=== PATIENT | female | born 1990 | race Caucasian/White ===

== ENCOUNTER → 2016-06-20 | Day surgery (SDC) | payer OTHER ==
[2016-06-15 12:35] VITALS: Ht 162.6 cm; Wt 136.4 kg
[~2016-06-20] VITALS: Ht 162.6 cm; Wt 136.4 kg
[~2016-06-20] MED LIST: ALBINS/ INH; ALBUAER2 INH; CLIN150C PO; ERGO500037 PO; FLUT110A INH; HYDR1SOL10 PO; HYDR5SYP11 PO; LIDOCAINE HCL 2% 2 ML VIAL (20MG/ML) ONE; METO25TA56 PO; MIDAZOLAM HCL 1 MG/ML 2ML VIAL ONE; MULT-506 PO; ONDA4TAB46 SL; PANT40TA PO; PRED20TA PO; PROPOFOL IV EMULSION 10 MG/ML 20 ML VIAL IV ONE; SODIUM CHLORIDE 0.9% 500ML 500 ML IV ONE; ZNTT/150 PO
--- NOTE | 2016-06-20 09:14 | Endo History and Physical ---
History & Physical Date of Service: Jun 20, 2016. Chief Complaint: Reflux, Belching, Nausea Referring Physician: Tiffany History of Present Illness nausea and GERd symptoms Past Surgical History Hx Cardiac Surgery: No Hx Internal Defibrillator: No Hx Pacemaker: No Hx Abdominal Surgery: No Hx of Implantable Prosthesis: No Hx Post-Op Nausea and Vomiting: No Hx Cancer Surgery: No Hx Thoracic Surgery: No Hx Orthopedic: Yes (LT FIBULA REPAIR, LT FOOT SURGERY) Hx Urinary Tract Surgery: No Family History None Social History Smoking Status: Never Smoker Hx Substance Use: No Hx Alcohol Use: No Allergies Coded Allergies: Amoxicillin (Verified Allergy, Unknown, HIVES, 06/20/16) Latex1 -Allergic Contact Dermititis (Verified Allergy, Unknown, RASH, 06/20) Nickel (Verified Allergy, Unknown, RASH, 06/20/16) Current Medications Reported Home Medications Medications Dose Route/Sig Max Daily Dose Days Date Category Dose Instructions Zofran (Ondansetron HCl) 4 Mg Tab 4 Mg SL Q8H PRN 06/15/16 Reported Vitamin D 38673 Unit (Ergocalciferol) 50,000 Unit Cap 50,000 Unit PO 2XWK 05/03/16 Reported Protonix (Pantoprazole Sodium) 40 Mg Tab 40 Mg PO QAM 05/03/16 Reported Multivitamin (Multivitamins) Tab 1 Tab PO QAM 05/03/16 Reported Proventil 0.083% 2.5MG/3ML (Albuterol Sulf) 2.5 Mg/3 Ml Nebu 2.5 Mg INH Q4 PRN 10/22/11 Reported Zantac (Ranitidine HCl) 150 Mg Tab 150 Mg PO BID PRN 10/22/11 Reported Flovent Hfa 110MCG Inhaler (Fluticasone Propionate Hfa) 110 Mcg/ Aer 2 Puff INH BID PRN 10/22/11 Reported takes prn Lopressor (Metoprolol Tartrate) 25 Mg Tab 25 Mg PO BID 10/22/11 Reported Ventolin (Albuterol) Inh 2 Puffs INH QID PRN 09/05/09 Reported Vital Signs Weight (Kilograms): 136.36 Height (Feet): 5 Height (Inches): 4 Date Time Temp Pulse Resp B/P Pulse Ox O2 Delivery O2 Flow Rate FiO2 06/20/16 08:44 36.6 57 18 138/65 98 Room Air Physical Exam General Appearance: no apparent distress Respiratory/Chest: Auscultation: breath sounds normal Cardiovascular: Heart Auscultation: RRR Abdomen: Inspection & Palpation: soft Liver: non-tender Assessment and Plan stable for EGD.
--- NOTE | 2016-06-20 09:35 | Discharge Instructions ---
Endoscopy Patient Instructions Date / Procedure(s) Performed Jun 20, 2016. EGD Allergy Information Coded Allergies: Amoxicillin (Verified Allergy, Unknown, HIVES, 06/20/16) Latex1 -Allergic Contact Dermititis (Verified Allergy, Unknown, RASH, 06/20) Nickel (Verified Allergy, Unknown, RASH, 06/20/16) Discharge Date / Findings Jun 20, 2016. small gastric polyp and mild reflux esophagitis Provider Instructions Activity Restrictions - No exercising or heavy lifting for 24 hours. - Do not drink alcohol the day of the procedure. - Do not drive a car or operate machinery until the day after the procedure. - Do not make any important decisions or sign important papers in 24 hours after the procedure. Following Day: - Return to full activity which may include returning to work/school. Diet Start your diet with liquids and light foods (jello, soup, juice, toast). Then eat your usual diet if not nauseated. Treatment For Common After Affects For mild abdominal pain, bloating, or excessive gas: - Rest - Eat lightly - Lie on right side Follow-Up Information Follow-up with Tiffany as scheduled Anesthesia Information What You Should Know You have had a procedure that required some medicine to reduce anxiety and discomfort. This treatment is called moderate sedation. After receiving the treatment, you may be sleepy, but you will be able to breathe on your own. The effects of the treatment may last for several hours. Follow these instructions along with Activity/Diet recommendations noted above: * Do NOT do anything where dizziness or clumsiness would be dangerous. * Rest quietly at home today, then you can be up and about tomorrow. * Have a responsible person stay with you the rest of today. * You may have had an I.V. today. If so, you may take the dressing off later today. Recommendations Call your doctor if: * Trouble breathing * Continuous vomiting for more than 24 hours * Temperature above 101 degrees * Severe abdominal pain or bloating * Pain not relieved by pain medicine ordered * There is increased drainage or redness from any incision * A large amount of rectal bleeding greater than 2-3 tablespoons. (If you had a polyp/s removed or have hemorrhoids, a small amount of blood - from the rectum is to be expected.) * You have any unanswered questions or concerns. IN THE EVENT OF A SERIOUS EMERGENCY, GO TO THE NEAREST EMERGENCY ROOM Your discharge instructions were prepared by provider Mo Betancur. Patient Instructions Signature Page Nichole Nicole Patient (or Guardian) Signature/Date: I have read and understand the instructions given to me by my caregivers. Caregiver/RN/Doctor Signature/Date: The above-named patient and/or guardian has received patient instructions on this date. + Original Patient Signature Page (only) stays with chart. Please make copy for patient.
--- NOTE | 2016-06-20 09:46 | GI REPORT ---
Procedure Date: 06/20/2016 9:16 AM Procedure: Upper GI endoscopy Indications: Heartburn, Eructation, Nausea Medicines: See the Anesthesia note for documentation of the administered medications Complications: No immediate complications. Estimated Blood Loss: Estimated blood loss was minimal. Procedure: Pre-Anesthesia Assessment: - Prior to the procedure, a History and Physical was performed, and patient medications, allergies and sensitivities were reviewed. The patient's tolerance of previous anesthesia was reviewed. - The risks and benefits of the procedure and the sedation options and risks were discussed with the patient. All questions were answered and informed consent was obtained. - Patient identification and proposed procedure were verified prior to the procedure by the physician and the nurse. The procedure was verified in the pre-procedure area. - Pre-procedure physical examination revealed no contraindications to sedation. - After reviewing the risks and benefits, the patient was deemed in satisfactory condition to undergo the procedure. After obtaining informed consent, the endoscope was passed under direct vision. Throughout the procedure, the patient's blood pressure, pulse, and oxygen saturations were monitored continuously. The scope was introduced through the mouth, and advanced to the third part of duodenum. The upper GI endoscopy was accomplished without difficulty. The patient tolerated the procedure well. Findings: LA Grade A (one or more mucosal breaks less than 5 mm, not extending between tops of 2 mucosal folds) esophagitis was found. A single small semi-sessile polyp with no stigmata of recent bleeding was found in the cardia. The polyp was removed with a cold snare. Resection and retrieval were complete. Verification of patient identification for the specimen was done by the physician and nurse using the patient's name and medical record number. Estimated blood loss was minimal. The examined duodenum was normal. The cardia and gastric fundus were normal on retroflexion. Impression: - Mild reflux esophagitis. - A single gastric polyp. Resected and retrieved. - Normal examined duodenum. Recommendation: - Await pathology results. - Discharge patient to home. Mo Betancur M.D. Mo Betancur MD 06/20/2016 9:46:01 AM This report has been signed electronically. Note Initiated On: 06/20/2016 9:16 AM I attest to the content of the Intraoperative Record and orders documented therein, exceptions below
--- NOTE | 2016-06-20 09:57 | Anesthesiology Progress Note ---
Anesthesia Post Op Note Date & Time Jun 20, 2016 at 09:56 Vital Signs Pain Intensity: 0 Vital Signs Past 12 Hours Date Time Temp Pulse Resp B/P Pulse Ox O2 Delivery O2 Flow Rate FiO2 06/20/16 09:45 67 20 116/58 100 Room Air 06/20/16 08:44 36.6 57 18 138/65 98 Room Air Notes Pt doing well.
[2016-06-20 10:14] VITALS: BP 141/82; PULSE 66; O2SAT 97
== END | disposition home or self-care (01) ==
LOC: C.GI 08:09
PROVIDERS: ATTEND Nurse Practitioner Family
DX: R11.0 Nausea (principal); R14.2 Eructation; K31.7 Polyp of stomach and duodenum; K21.0 Gastro-esophageal reflux disease with esophagitis

== ENCOUNTER → 2016-07-13 | Outpatient (CLI) | payer OTHER ==
[~2016-07-13] MED LIST changes: -LIDOCAINE HCL 2% 2 ML VIAL (20MG/ML) ONE; -MIDAZOLAM HCL 1 MG/ML 2ML VIAL ONE; -PROPOFOL IV EMULSION 10 MG/ML 20 ML VIAL IV ONE; +SINCALIDE IV ONE; -SODIUM CHLORIDE 0.9% 500ML 500 ML IV ONE; +SODIUM CHLORIDE 0.9% IV ONE
--- NOTE | 2016-07-13 14:05 | DIAGNOSTIC IMAGING REPORT ---
NUCLEAR MEDICINE HEPATOBILIARY SCAN WITH EJECTION FRACTION HISTORY: Generalized abdominal pain. COMPARISON: Abdominal ultrasound 10/22/2011. TECHNIQUE: Immediately following the intravenous administration of 5.3 mCi Tc-99m Choletec, dynamic anterior abdominal imaging pre/post 2.8 mcg of Kinevac was performed. FINDINGS: Uniform hepatic tracer accumulation is shown. Prompt intrahepatic biliary excretion is seen. The gallbladder, common bile duct, and small bowel are all visualized by 25 minutes. This appearance represents the normal sequence of biliary excretion. The gall bladder ejection fraction following administration of Kinevac was 98% (normal >35%). IMPRESSION: 1. No evidence for cystic duct obstruction. 2. Gallbladder ejection fraction calculated to be 98 %. Electronically signed by: Quan Lara M.D. 07/13/2016 2:03 PM Dictated Date/Time: 07/13/2016 2:03 PM
== END | disposition home or self-care (01) ==
LOC: C.NUCL 10:27
PROVIDERS: ATTEND Family Medicine
DX: R10.11 Right upper quadrant pain (principal)

== ENCOUNTER 2016-08-13 19:41 | Emergency (ER) | payer OTHER ==
[~2016-08-13] VITALS: Ht 162.6 cm; Wt 137.6 kg
[~2016-08-13 19:41] MED LIST changes: -CLIN150C PO; -HYDR1SOL10 PO; -HYDR5SYP11 PO; -PRED20TA PO; -SINCALIDE IV ONE; -SODIUM CHLORIDE 0.9% IV ONE
[2016-08-13 19:45] VITALS: Ht 162.6 cm; Wt 137.6 kg
[2016-08-13] MEDS ORDERED: HYDR1SOL10 PO (19:57)
[2016-08-13] MEDS ORDERED: PRED20TA PO (19:57)
[2016-08-13] MEDS ORDERED: CLIN150C PO (19:57)
[2016-08-13] MEDS ORDERED: CLINDAMYCIN HCL 150 MG CAP PO ONE (20:00)
[2016-08-13] MEDS ORDERED: HYDROCODONE/APAP ELIX 60ML HOME PACK PO ONE (20:00)
[2016-08-13 20:16] VITALS: BP 121/82; PULSE 80; TEMP 37; O2SAT 97
--- NOTE | 2016-08-13 20:38 | EMERGENCY ROOM VISIT NOTE ---
History Report prepared by Huey: Ayala Durham Under the Supervision of: Dr. Damir Pantoja M.D. First contact with patient: 19:47 Chief Complaint: ILLNESS Stated Complaint: SORE THROAT,NECK PAIN,LOW GRADE FEVER History of Present Illness The patient is a 25 year old female who presents to the Emergency Room with complaints of a worsening sore throat for the past two days. She has been unable to swallow due to pain. She is concerned that she is dehydrated. She has had low-grade fevers with a temperature around 99.8. The patient also reports bilateral ear pain and neck soreness on the left. She rates her pain as an 8/10 in severity. She denies any cough. She denies chance of . Source of History: patient Onset: 2 days ago Position: throat Symptom Intensity: 8/10 Quality: other (sore) Timing: worsening Modifying Factors (Worsening): other (swallowing) Associated Symptoms: + neck pain, No cough Note: Pt notes bilateral ear pain. Review of Systems See HPI for pertinent positives & negatives. A total of 6 systems reviewed and were otherwise negative. Past Medical & Surgical Medical Problems: (1) Asthma (2) frequent PVC Surgical Problems: (1) Status post ORIF of fracture of ankle Family History Cancer Diabetes mellitus Heart disease Hypertension Lung disease Social History Smoking Status: Never Smoker Marital Status: single Housing Status: lives with family Occupation Status: unemployed, student Current/Historical Medications Scheduled Clindamycin Hcl (Cleocin), 300 MG PO TID Ergocalciferol (Vitamin D 64277 Unit), 50,000 UNIT PO 2XWK Metoprolol Tartrate (Lopressor) (Lopressor), 25 MG PO BID Multivitamin (Multivitamin), 1 TAB PO QAM Pantoprazole (Protonix), 40 MG PO QAM Prednisone (Prednisone), 3 TAB PO DAILY Scheduled PRN Albuterol (Ventolin), 2 PUFFS INH QID PRN for Wheezing Albuterol Sulf (Proventil 0.083% 2.5MG/3ML), 2.5 MG INH Q4 PRN for Wheezing Fluticasone Propionate Hfa (Flovent Hfa 110MCG Inhaler), 2 PUFF INH BID PRN for Shortness of Breath Hydrocodone-Acetaminophen (Hydrocodone/Acetami 7.5/325MG 15ML), 5 ML PO Q6 PRN for Pain Ondansetron Hcl (Zofran), 4 MG SL Q8H PRN for Nausea Ranitidine (Zantac), 150 MG PO BID PRN for Heartburn Allergies Coded Allergies: Amoxicillin (Verified Allergy, Unknown, HIVES, 08/13/16) Latex1 -Allergic Contact Dermititis (Verified Allergy, Unknown, RASH, 08/13) Nickel (Verified Allergy, Unknown, RASH, 08/13/16) Physical Exam Vital Signs Date Time Temp Pulse Resp B/P (MAP) Pulse Ox O2 Delivery O2 Flow Rate FiO2 08/13/16 20:16 37.0 80 20 121/82 97 08/13/16 20:15 80 20 121/82 97 Room Air 08/13/16 19:45 37.0 81 20 97 Room Air Physical Exam Constitutional: Vital signs reviewed. Eyes: Pupils are equal round reactive to light. Conjunctiva are noninjected. ENT: TMs clear bilaterally. Diffuse erythema to the posterior oropharynx with exudate on the tonsil, no uvula shift or edema, no trismus, no peritonsillar abscess. Mucous membranes are moist. Neck supple without meningeal signs. Anterior cervical lymphadenopathy on the left side with tenderness. Respiratory: Clear to auscultation bilaterally. Breath sounds are equal bilaterally. No wheezing or stridor. Cardiovascular: Regular rate and rhythm. No rubs or gallops. GI: Soft, nondistended and nontender. Bowel sounds are present. No organomegaly. Integumentary: No cyanosis. Neurological: The patient is awake and alert. No focal deficits. Psychiatric: Normal affect. Medical Decision & Procedures Medications Administered Medications (Trade) Dose Ordered Sig/Eddie Route Start Time Stop Time Status Last Admin Dose Admin Acetaminophen/ Hydrocodone Bitart (Hydrocod/Apap Elix 7.5/325MG/ 15ML Home Pack) 1 homepack UD ONCE PO 08/13/16 20:00 08/13/16 20:01 DC 08/13/16 20:04 1 HOMEPACK Clindamycin HCl (Cleocin Cap) 300 mg NOW ONCE PO 08/13/16 20:00 08/13/16 20:01 DC 08/13/16 20:03 300 MG Prednisone (PredniSONE TAB) 60 mg NOW STAT PO 08/13/16 19:53 08/13/16 19:54 DC 08/13/16 20:03 60 MG ED Course 1946: The patient was evaluated in room C5. A complete history and physical exam was performed. At this time I discussed the results and treatment plan with the patient. I answered all pertaining questions that she had. She expressed understanding and verbalized agreement. The patient will be discharged home. 1952: Prednisone 60 mg PO 1999: Clindamycin HCl 300 mg PO, Hydrocodone Bitart/Acetaminophen PO 1 homepack Medical Decision This is a 25-year-old female who presents with sore throat and cold symptoms. Differential diagnosis includes viral syndrome, pharyngitis, strep, mononucleosis. I did perform a limited focused review of portions of the patient's old chart on the electronic medical record. The patient has had no recent pertinent visits to this hospital. Medication Reconciliation: I attest that I have personally reviewed the patient' s current medication list. Blood Pressure Screening: Patient was found to have normal blood pressure on screening and does not require follow-up. I did evaluate the patient as noted above. She does appear to have a exudative pharyngitis with cervical lymphadenopathy. I did treat her empirically with clindamycin. She was also given prednisone to help with inflammation. She was given Lortab elixir for pain control and advised to use the medication sparingly and advised of the potential side effects. She was discharged with a prescription for clindamycin, prednisone and Lortab elixir. She was advised follow up with her doctor. [place] Drug Monitoring Program Search Results: patient reviewed within database, no issues identified Impression Primary Impression: Exudative pharyngitis Scribe Attestation The scribe's documentation has been prepared under my direct and personally reviewed by me in its entirety. I confirm that the note above accurately reflects all work, treatment, procedures, and medical decision making performed by me. Departure Information Dispostion Home / Self-Care Prescriptions Prednisone (Prednisone) 20 Mg Tab 3 TAB PO DAILY, #12 TAB FOR 4 DAYS Prov: Damir Pantoja M.D. 08/13/16 Hydrocodone-Acetaminophen (HYDROCODONE/ACETAMI 7.5/325MG 15ML) 1 [place] 5 ML PO Q6 Y for Pain for 5 Days, #100 ML Prov: Damir Pantoja M.D. 08/13/16 Clindamycin Hcl (CLEOCIN) 150 Mg Cap 300 MG PO TID for 10 Days, #60 CAP Prov: Damir Pantoja M.D. 08/13/16 Referrals Sreekanth Allen M.D.(MARYANA) (PCP) Forms HOME CARE DOCUMENTATION FORM, IMPORTANT VISIT INFORMATION, WORK / SCHOOL INSTRUCTIONS Patient Instructions ED Strep Pharyngitis Jordyn, [facility] Additional Instructions You have been examined and treated today on an emergency basis only. This is not a substitute for, or an effort to provide, complete comprehensive medical care. It is impossible to recognize and treat all injuries or illnesses in a single emergency department visit. It is therefore important that you follow up closely with your physician. Call as soon as possible for an appointment. Return for worsening symptoms or if you develop fever over 101, vomiting, or any other concerning symptoms.
== END 2016-08-13 20:18 | disposition home or self-care (01) ==
LOC: C.EDB 19:42 → C.EDC 20:18
DX: J02.9 Acute pharyngitis, unspecified (principal); R50.9 Fever, unspecified

== ENCOUNTER 2016-09-12 13:40 | Emergency (ER) | payer OTHER ==
[~2016-09-12] VITALS: Ht 162.6 cm; Wt 142.5 kg
[~2016-09-12 13:40] MED LIST changes: +PRED20TA PO
[2016-09-12 13:46] VITALS: TEMP 36.8; Ht 162.6 cm; Wt 142.5 kg
[2016-09-12] MEDS ORDERED: ALBUT/IPRATROP 3MG/0.5MG NEB 3 ML VIAL INH STA (13:52)
[2016-09-12] MEDS ORDERED: HYDROCODONE/HOMATROPINE SYRUP 5MG/1.5MG 5ML UDP PO STA (13:58)
--- NOTE | 2016-09-12 14:02 | EMERGENCY ROOM VISIT NOTE ---
History Report prepared by Huey: Mariela Whitfield Under the Supervision of: Dr. Liliana Duke M.D. First contact with patient: 13:52 Chief Complaint: RESPIRATORY PROBLEMS Stated Complaint: BREATHING DIFFICULTIES Nursing Triage Summary: Pt reports nasal congestion and sore throat since Sat. Yesterday "my asthma flared up. I called my family dr and tried to get in, but they didn't have any appts. I have been using my inhaler and neb." History of Present Illness The patient is a 25 year old female who presents to the Emergency Room with complaints of constant shortness of breath beginning yesterday. The patient states that for the past 4 days she has been experiencing nasal congestion, cough and a sore throat. She notes when she gets symptoms like this her asthma worsens. The patient has been put on Clindamycin by her PCP. She has been taking her nebulizer and inhaler every 4 hours. She began to use these yesterday morning. The patient states her symptoms feel to be upper airway and not in her chest. She did call her PCP today but was unable to get an appointment. She was referred to the ED. The patient states being outside worsens her symptoms. She also denies chest pain. The patient has a history of PVC and takes metoprolol daily. Source of History: patient Onset: yesterday Position: other (global) Quality: other (shortness of breath) Timing: constant Associated Symptoms: + sorethroat, + cough, No chest pain Note: The patient is experiencing nasal congestion. Review of Systems See HPI for pertinent positives & negatives. A total of 10 systems reviewed and were otherwise negative. Past Medical & Surgical Medical Problems: (1) Asthma (2) frequent PVC Surgical Problems: (1) Status post ORIF of fracture of ankle Family History Cancer Diabetes mellitus Heart disease Hypertension Lung disease Social History Smoking Status: Never Smoker Marital Status: single Housing Status: lives with family Occupation Status: unemployed, student Current/Historical Medications Scheduled Ergocalciferol (Vitamin D 35089 Unit), 50,000 UNIT PO 2XWK Metoprolol Tartrate (Lopressor) (Lopressor), 25 MG PO BID Multivitamin (Multivitamin), 1 TAB PO QAM Pantoprazole (Protonix), 40 MG PO QAM Prednisone (Prednisone), 3 TAB PO DAILY Prednisone (Prednisone), 40 MG PO DAILY Scheduled PRN Albuterol (Ventolin), 2 PUFFS INH QID PRN for Wheezing Albuterol Sulf (Proventil 0.083% 2.5MG/3ML), 2.5 MG INH Q4 PRN for Wheezing Fluticasone Propionate Hfa (Flovent Hfa 110MCG Inhaler), 2 PUFF INH BID PRN for Shortness of Breath Hydrocodone W/ Homatropine (Hycodan 5/1.5MG 5 Ml), 10 ML PO Q6 PRN for Cough Ondansetron Hcl (Zofran), 4 MG SL Q8H PRN for Nausea Ranitidine (Zantac), 150 MG PO BID PRN for Heartburn Allergies Coded Allergies: Amoxicillin (Verified Allergy, Unknown, HIVES, 08/13/16) Latex1 -Allergic Contact Dermititis (Verified Allergy, Unknown, RASH, 08/13) Nickel (Verified Allergy, Unknown, RASH, 08/13/16) Physical Exam Vital Signs Date Time Temp Pulse Resp B/P (MAP) Pulse Ox O2 Delivery O2 Flow Rate FiO2 09/12/16 15:13 86 18 139/83 98 09/12/16 13:46 36.8 84 18 155/77 99 Room Air Physical Exam Vital signs reviewed. General: Well-appearing female, in no significant distress. Obese. Bronchospastic cough. HEENT: No scleral icterus, PERRLA, neck supple. Atraumatic. Cardiovascular: Regular rate and rhythm, no extra sounds. Pulmonary: Clear to auscultation bilaterally, normal work of breathing. Abdomen: Soft, nontender, nondistended, positive bowel sounds. Musculoskeletal: Atraumatic, minimal peripheral edema. Neurologic: Patient awake alert and oriented x 3, full strength in all 4 extremities. Cranial nerves 2 through 12 grossly intact. Skin: Warm, dry, no rash Medical Decision & Procedures ER Provider Diagnostic Interpretation: X-ray results as stated below per interpretation by me and the radiologist: CHEST ONE VIEW PORTABLE CLINICAL HISTORY: asthma dyspnea COMPARISON STUDY: 06/23/2012 FINDINGS: Mild stable cardiomegaly. The lungs are clear. Diaphragms smooth. IMPRESSION: Mild stable cardiomegaly. No acute process. The above report was generated using voice recognition software. It may contain grammatical, syntax or spelling errors. Electronically signed by: Pablo Nixon M.D. 09/12/2016 2:14 PM Dictated Date/Time: 09/12/2016 2:14 PM Medications Administered Medications (Trade) Dose Ordered Sig/Eddie Route Start Time Stop Time Status Last Admin Dose Admin Albuterol/ Ipratropium (Duoneb) 3 ml NOW STAT INH 09/12/16 13:52 09/12/16 13:54 DC 09/12/16 14:06 3 ML Prednisone (PredniSONE TAB) 60 mg NOW STAT PO 09/12/16 13:56 09/12/16 13:58 DC 09/12/16 14:07 60 MG Hydrocodone Bit/ Homatropine Methylb (Hycodan Syrup) 10 ml NOW STAT PO 09/12/16 13:58 09/12/16 13:59 DC 09/12/16 14:07 10 ML ED Course 1350: Past medical records reviewed. The patient was evaluated in room B2. A complete history and physical examination was performed. 1352: Duoneb 3 ml INH, Prednisone Tab 60 mg PO, Hycodan Syrup 10 ml PO. 1448: I discussed test results with the patient. 1450: Upon reevaluation, the patient appeared to have improvement of her symptoms. I discussed findings with the patient. She verbalized agreement of the treatment plan. She was discharged home. Medical Decision The patient is a 25 year old female who presents to the ED with complaints of shortness of breath. Differentials include infections, reactive airway disease , pneumonia, pneumothorax, COPD, CHF, cardiac ischemia, pulmonary embolism, musculoskeletal, gastrointestinal, as well as others were entertained. Medication Reconciliation: I attest that I have personally reviewed the patient' s current medication list. Blood Pressure Screening: Patient was found to have an elevated blood pressure and was referred to their primary doctor for recheck and further treatment. This patient was evaluated and appeared to be in no significant distress. Physical examination reveals a bronchospastic cough without any significant wheezing. Patient was given a DuoNeb treatment, oral prednisone. Chest x-ray is clear. Patient was discharged with a course of prednisone 40 mg daily for 4 more days, albuterol nebulizers as needed and a prescription for Hycodan cough syrup. She was advised not to drive on this medication. She'll follow-up with her physician this week for reevaluation and return to the ER for worsening of symptoms or any medical concerns. Impression Primary Impression: Asthma exacerbation Additional Impression: Upper respiratory infection Scribe Attestation The scribe's documentation has been prepared under my direction and personally reviewed by me in its entirety. I confirm that the note above accurately reflects all work, treatment, procedures, and medical decision making performed by me. Departure Information Dispostion Home / Self-Care Prescriptions Hydrocodone W/ Homatropine (HYCODAN 5/1.5MG 5 ML) 1 Syp Syp 10 ML PO Q6 Y for Cough, #200 ML Prov: Liliana Duke M.D. 09/12/16 Prednisone (Prednisone) 20 Mg Tab 40 MG PO DAILY, #8 TAB Prov: Liliana Duke M.D. 09/12/16 Referrals Sreekanth Allen M.D.(MARYANA) (PCP) Forms HOME CARE DOCUMENTATION FORM, IMPORTANT VISIT INFORMATION, WORK / SCHOOL INSTRUCTIONS Patient Instructions [facility] Additional Instructions Diagnosis: Viral upper respiratory infection, asthma exacerbation Prednisone 40 mg daily for 4 more days. Albuterol nebulizer every 4 hours as needed for cough or wheezing. Hycodan syrup 10 mL every 6 hours as needed for cough, do not drive while on this medication. Follow-up with your physician this week as scheduled for reevaluation. Return to the ER for worsening of symptoms or any medical concerns. Problem Qualifiers
--- NOTE | 2016-09-12 14:16 | DIAGNOSTIC IMAGING REPORT ---
CHEST ONE VIEW PORTABLE CLINICAL HISTORY: asthma dyspnea COMPARISON STUDY: 06/23/2012 FINDINGS: Mild stable cardiomegaly. The lungs are clear. Diaphragms smooth. IMPRESSION: Mild stable cardiomegaly. No acute process. The above report was generated using voice recognition software. It may contain grammatical, syntax or spelling errors. Electronically signed by: Pablo Nixon M.D. 09/12/2016 2:14 PM Dictated Date/Time: 09/12/2016 2:14 PM
[2016-09-12] MEDS ORDERED: HYDR5SYP11 PO (14:45)
[2016-09-12] MEDS ORDERED: PRED20TA PO (14:45)
[2016-09-12 15:13] VITALS: BP 139/83; PULSE 86; O2SAT 98
== END 2016-09-12 15:14 | disposition home or self-care (01) ==
LOC: C.EDB 13:41
DX: J45.901 Unspecified asthma with (acute) exacerbation (principal); J06.9 Acute upper respiratory infection, unspecified; I49.3 Ventricular premature depolarization; Z80.9 Family history of malignant neoplasm, unspecified; Z83.3 Family history of diabetes mellitus; Z82.49 Family history of ischemic heart disease and other diseases of the circulatory system; Z79.899 Other long term (current) drug therapy; E66.9 Obesity, unspecified; Z68.43 Body mass index [BMI] 50.0-59.9, adult

== ENCOUNTER → 2017-04-05 | Outpatient (CLI) | payer OTHER ==
[~2017-04-05] MED LIST changes: -PRED20TA PO; +RANI150T85 PO; -ZNTT/150 PO
--- NOTE | 2017-04-09 19:15 | HOLTER SCAN ---
ORDERING PHYSICIAN: Dr. Delfino Rosado. INTERPRETATION SUMMARY: INDICATION FOR STUDY: Premature ventricular contractions. Duration of monitoring was 23 hours and 49 minutes. The predominant underlying rhythm was sinus with an average heart rate of 69 beats per minute, minimum heart rate of 47 beats per minute and a maximum heart rate of 132 beats per minute. There were rare supraventricular ectopic beats. There were frequent, 13,440 ventricular ectopic beats including 77 couplets, 16 episodes of bigeminy. There was no sustained ventricular tachycardia. No symptoms reported by the patient. CONCLUSION: A 24-hour Holter monitor demonstrating sinus rhythm with frequent isolated premature ventricular complexes with occasional couplets and periods of ventricular bigeminy.
== END | disposition home or self-care (01) ==
LOC: C.CPL 13:19
PROVIDERS: ATTEND Specialist
DX: I49.3 Ventricular premature depolarization (principal)

== ENCOUNTER → 2017-04-11 | Outpatient (CLI) | payer OTHER ==
--- NOTE | 2017-04-11 14:56 | ECHOCARDIOGRAM REPORT ---
*NOTICE TO RECEIVING [employer] This information is strictly Confidential and protected under [place] law. [place] law prohibits you from making any further disclosure of this information unless further disclosure is expressly permitted by the written consent of the person to whom it pertains or is authorized by law. A general authorization for the release of medical or other information is not sufficient for this purpose. Hospital accepts no responsibility if the information is made available to any other person, INCLUDING THE PATIENT. Interpretation Summary * Name: SIMONE OGDEN Study Date: 04/11/2017 01:29 PM BP: 139/83 mmHg * Patient Location: [facility] HR: 79 * : 1990 (M/d/yyyy) Gender: Female Height: 64 in * Age: 26 yrs Ethnicity: [place] Weight: 316 lb * Ordering Physician: Delfino Rosado * Referring Physician: Delfino Rosado D.O. * Performed By: Chantelle Jung RCS * * Reason For Study: PVC'S * BSA: 2.4 m2 * The study was technically adequate. * There is no comparison study available. * -- Conclusions -- * Left ventricular systolic function is normal. * Ejection Fraction = 60-65%. * There is borderline concentric left ventricular hypertrophy. * Pulse wave TDI of the anterior and posterior mitral annulas demonstrates normal LV relaxation Procedure Details * A complete two-dimensional transthoracic echocardiogram was performed (2D, M-mode, Doppler and color flow Doppler). Left Ventricle * The left ventricle is normal in size. * There is borderline concentric left ventricular hypertrophy. * Left ventricular systolic function is normal. * Ejection Fraction = 60-65%. * The left ventricular wall motion is normal. Right Ventricle * The right ventricle is normal size. * The right ventricular systolic function is normal as assessed by tricuspid annular plane systolic excursion (TAPSE) (normal >1.5 cm). Atria * The left atrial size is normal. * Right atrial size is normal. * There is no evidence of atrial septal defect, but resolution does not allow assessment for a patent foramen ovale. Mitral Valve * The mitral valve is normal. * There is no mitral valve stenosis. * Significant mitral regurgitation is absent. Tricuspid Valve * The tricuspid valve is normal. * There is no tricuspid stenosis. * There is trace tricuspid regurgitation. Aortic Valve * The aortic valve is trileaflet. * Aortic stenosis is absent. * There is no significant aortic regurgitation. Pulmonic Valve * The pulmonary valve is not well seen, but the Doppler examination is normal without significant regurgitation or stenosis. Great Vessels * The aortic root is normal size. Pericardium/Pleural * There is no pericardial effusion. Great Vessels * Normal inferior vena cava diameter and respiratory variation suggests normal central venous pressure. Left Ventricular Diastolic Function * Pulse wave TDI of the anterior and posterior mitral annulas demonstrates normal LV relaxation MMode 2D Measurements and Calculations IVSd 1.2 cm IVSs 1.3 cm LVIDd 5.5 cm LVIDs 4.1 cm LVPWd 1.2 cm LVPWs 1.5 cm IVS/LVPW 1.0 FS 25.7 % EDV(Teich) 147.3 ml ESV(Teich) 73.5 ml EF(Teich) 50.1 % EDV(cubed) 166.3 ml ESV(cubed) 68.1 ml EF(cubed) 59.0 % % IVS thick 9.1 % % LVPW thick 24.8 % LV mass(C)d 276.4 grams LV mass(C)dI 116.3 grams/m\S\2 LV mass(C)s 219.6 grams LV mass(C)sI 92.4 grams/m\S\2 SV(Teich) 73.8 ml SI(Teich) 31.1 ml/m\S\2 SV(cubed) 98.2 ml SI(cubed) 41.3 ml/m\S\2 Ao root diam 2.6 cm Ao root area 5.3 cm\S\2 ACS 2.0 cm LA dimension 4.1 cm LA/Ao 1.6 LVOT diam 2.0 cm LVOT area 3.0 cm\S\2 LVAd ap4 35.3 cm\S\2 LVLd ap4 8.1 cm EDV(MOD-sp4) 129.8 ml EDV(sp4-el) 131.3 ml LVAs ap4 17.4 cm\S\2 LVLs ap4 6.6 cm ESV(MOD-sp4) 40.9 ml ESV(sp4-el) 39.2 ml EF(MOD-sp4) 68.5 % EF(sp4-el) 70.1 % LVAd ap2 29.2 cm\S\2 LVLd ap2 7.7 cm EDV(MOD-sp2) 93.5 ml EDV(sp2-el) 94.1 ml LVAs ap2 16.0 cm\S\2 LVLs ap2 6.6 cm ESV(MOD-sp2) 32.5 ml ESV(sp2-el) 33.2 ml EF(MOD-sp2) 65.3 % EF(sp2-el) 64.8 % LVLd %diff -5.02 % EDV(MOD-bp) 113.2 ml LVLs %diff 0.02 % ESV(MOD-bp) 36.2 ml EF(MOD-bp) 68.0 % SV(MOD-sp4) 89.0 ml SI(MOD-sp4) 37.4 ml/m\S\2 SV(MOD-sp2) 61.1 ml SI(MOD-sp2) 25.7 ml/m\S\2 SV(MOD-bp) 77.0 ml SI(MOD-bp) 32.4 ml/m\S\2 SV(sp4-el) 92.1 ml SI(sp4-el) 38.8 ml/m\S\2 SV(sp2-el) 60.9 ml SI(sp2-el) 25.6 ml/m\S\2 Doppler Measurements and Calculations MV E max velma 111.1 cm/sec MV A max velma 49.6 cm/sec MV E/A 2.2 MV P1/2t max velma 115.6 cm/sec MV P1/2t 81.8 msec MVA(P1/2t) 2.7 cm\S\2 MV dec slope 413.8 cm/sec\S\2 MV dec time 0.20 sec Ao V2 max 146.7 cm/sec Ao max PG 8.6 mmHg Ao max PG (full) 1.4 mmHg ZELALEM(V,A) 2.8 cm\S\2 ZELALEM(V,D) 2.8 cm\S\2 LV V1 max PG 7.2 mmHg LV V1 max 134.2 cm/sec PA V2 max 120.8 cm/sec PA max PG 5.8 mmHg TR max velma 243.3 cm/sec
== END | disposition home or self-care (01) ==
LOC: C.CPL 13:10
PROVIDERS: ATTEND Specialist
DX: I49.3 Ventricular premature depolarization (principal)